=== PATIENT | male | born 1965 ===

== ENCOUNTER 2019-03-27 19:06 | Emergency (ER) | payer MEDICARE, MEDICAID ==
--- NOTE | 2019-03-27 19:52 | EDM.PDOCBH ---
ED HPI GENERAL MEDICAL PROBLEM - General Chief Complaint: Behavioral/Psych Stated Complaint: CONFUSION Time Seen by Provider: 03/27/19 19:13 Source of Information: Reports: Patient, Police History Limitations: Reports: No Limitations - History of Present Illness INITIAL COMMENTS - FREE TEXT/NARRATIVE: This patient was brought in by the [facility] department for a psych evaluation. He lives at the [facility] and wandered away from the home just a short while ago about an hour and a half according to the patient. He said he was in an argument with a lady who works there who he likes. He said it was over a towel or washcloth. He got mad and so he left. He had no intentions of hurting himself. He was out hitchhiking when picked up by the Plant [facility]iologist's department. He did say that he feels depressed because of the breakup with his girlfriend but that happened years ago. denies pain Pain Score (Numeric/FACES): 0 - Related Data Allergies Allergy/AdvReac Type Severity Reaction Status Date / Time No Known Allergies Allergy Verified 03/27/19 19:14 ED ROS GENERAL - Review of Systems Review Of Systems: ROS reveals no pertinent complaints other than HPI. ED EXAM, BEHAVIORAL HEALTH - Physical Exam Exam: See Below Exam Limited By: No Limitations General Appearance: Alert, Other (He appears to be in his mid 60s or about 10 years older than his stated age. He walks in sort of hunched over. He's not in any distress.) Eye Exam: Bilateral Eye: Normal Inspection Throat/Mouth: Normal Inspection Neck: Normal Inspection Respiratory/Chest: Lungs Clear Cardiovascular: Regular Rate, Rhythm Neurological: Alert, Normal Mood/Affect (Does not appear to be depressed), CN II -XII Intact, No Motor/Sensory Deficits, Oriented x 3 (He knows it's March 2019 and he knows he lives in [place] and that he is presently in [place].). No: Normal Gait Psychiatric: Alert, Normal Affect, Normal Mood, Other (He does say that he gets messages over the TV). No: Depressed Mood, Flat Affect Skin Exam: Warm, Dry COURSE, BEHAVIORAL HEALTH COMP - Course Re-Assessment/Re-Exam: [facility] Personnel they're just noticed a short while ago that he was missing and were about to call 911 when we contacted them. They' re sending someone to pick him up. Departure - Departure Time of Disposition: 19:54 Disposition: Home, Self-Care 01 Condition: Good Clinical Impression: Encounter for behavioral health screening - Discharge Information Referrals: PCP,None [Primary Care Provider] - Additional Instructions: Resume your usual care of this patient. He seems to have some concerns with depression and loss of an old girlfriend. It would be a good idea if he sees a counselor early this coming week.
== END 2019-03-27 20:22 | disposition home or self-care (01) ==
LOC: JP.ED 19:06
DX: Z13.30 Encounter for screening examination for mental health and behavioral disorders, unspecified (principal)
CPT/HCPCS: 99283; 99284